=== PATIENT | female | born 1970 | race Caucasian/White ===

== ENCOUNTER → 2016-07-07 | Outpatient (CLI) | payer BC ==
[2016-07-07 17:15] LABS: THYROID STIMULATING HORMONE 3.26 uIu/ml (0.300-4.500)
== END | disposition home or self-care (01) ==
LOC: C.LABBFT 16:20
PROVIDERS: ATTEND Internal Medicine
DX: E03.9 Hypothyroidism, unspecified (principal)

== ENCOUNTER → 2016-12-13 | Outpatient (CLI) | payer BC ==
[~2016-12-13] MED LIST: FLUO40CA8 PO; LEVO175T3 PO; NIFE10CA20 PO; PRENTAB26 PO
== END | disposition home or self-care (01) ==
LOC: C.LAB 10:25
PROVIDERS: ATTEND Obstetrics & Gynecology
DX: O20.0 Threatened abortion (principal)

== ENCOUNTER → 2016-12-14 | Outpatient (CLI) | payer BC ==
[2016-12-16 20:51] LABS: CHLAMYDIA TRACH RNA*** NOT DETECTED (NOT DETECTED); GC (NEIS GONORRHOEAE)RNA** NOT DETECTED (NOT DETECTED)
== END | disposition home or self-care (01) ==
LOC: C.LABSPEC 15:40
PROVIDERS: ATTEND Obstetrics & Gynecology
DX: O09.521 Supervision of elderly multigravida, first trimester (principal)

== ENCOUNTER → 2016-12-15 | Outpatient (CLI) | payer BC | END | disposition home or self-care (01) | LOC: C.LAB 13:24 | PROVIDERS: ATTEND Obstetrics & Gynecology | DX: O20.0 Threatened abortion (principal) ==

== ENCOUNTER → 2016-12-26 | Outpatient (CLI) | payer BC | END | disposition home or self-care (01) | LOC: C.LAB 14:52 | PROVIDERS: ATTEND Obstetrics & Gynecology | DX: O20.0 Threatened abortion (principal); Z3A.00 Weeks of gestation of pregnancy not specified ==

== ENCOUNTER → 2017-01-09 | Outpatient (CLI) | payer BC ==
[2017-01-09 17:59] LABS: THYROID STIMULATING HORMONE 6.04 uIu/ml (0.300-4.500)
== END | disposition home or self-care (01) ==
LOC: C.LABBFT 17:48
PROVIDERS: ATTEND Internal Medicine
DX: N92.6 Irregular menstruation, unspecified (principal); E03.9 Hypothyroidism, unspecified

== ENCOUNTER → 2017-02-17 | Outpatient (CLI) | payer BC ==
[2017-02-17 12:42] LABS: BASO % 0.2 %; BASO ABS # 0.02 K/uL (0-0.2); COMPLETE YES; EOS % 0.7 %; HEMATOCRIT 36.8 % (37-47); IG% 0.2 %; LYMPH ABS # 1.45 K/uL (1.2-3.4); MEAN CELL VOLUME 92.5 fL (80-100); MEAN CORPUSCULAR HEMOGLOBIN 31.4 pg (25-34); MEAN PLATELET VOLUME 9.2 fL (7.4-10.4); MONO % 4.9 %; PLATELET COUNT 323 K/uL (130-400); RED BLOOD COUNT 3.98 M/uL (4.2-5.4); WHITE BLOOD COUNT 9.67 K/uL (4.8-10.8)
== END | disposition home or self-care (01) ==
LOC: C.LAB 10:46
PROVIDERS: ATTEND Obstetrics & Gynecology
DX: Z34.82 Encounter for supervision of other normal pregnancy, second trimester (principal)

== ENCOUNTER → 2017-03-10 | Outpatient (CLI) | payer BC ==
[2017-03-10 09:44] LABS: GTGD 50 Grams
== END | disposition home or self-care (01) ==
LOC: C.LAB 06:41
PROVIDERS: ATTEND Obstetrics & Gynecology
DX: O09.512 Supervision of elderly primigravida, second trimester (principal); Z3A.00 Weeks of gestation of pregnancy not specified

== ENCOUNTER 2017-05-23 14:26 | Outpatient (CLI) | payer BC ==
[~2017-05-23] VITALS: Ht 167.6 cm; Wt 88.0 kg
[2017-05-23] MEDS ORDERED: PRENTAB26 PO (15:33)
[2017-05-23] MEDS ORDERED: NIFE10CA20 PO (15:33)
[2017-05-23] MEDS ORDERED: FLUO40CA8 PO (15:33)
[2017-05-23] MEDS ORDERED: LEVO175T3 PO (15:33)
--- NOTE | 2017-05-23 17:59 | DIAGNOSTIC IMAGING REPORT ---
LIMITED (US) CLINICAL HISTORY: BLEEDING vaginal bleeding TECHNIQUE: Ultrasound COMPARISON STUDY: None FINDINGS: Single, viable intrauterine of approximately 27 weeks 2 days gestational age. Presentation is cephalic. Placenta is complete previa. Completely covers the internal cervical os The following parameters were obtained 1. VERONICA 6.7 cm equals 27 weeks 0 days. 2. HC 24.1 cm equals 26 weeks 1 day. 3. ACC 21.6 equals 26 weeks 1 day. 4. FL 5.1 cm equals 27 weeks 1 day. IMPRESSION: 1. Complete placenta previa 2. No evidence for abruption placenta. 3. Maternal cervix 3.2 cm in greatest length. 4. Single, viable intrauterine of approximately 27 weeks 2 days gestational age. The above report was generated using voice recognition software. It may contain grammatical, syntax or spelling errors. Electronically signed by: Mark Soliman M.D. 05/23/2017 5:58 PM Dictated Date/Time: 05/23/2017 5:54 PM
[2017-05-23 18:39] VITALS: Ht 167.6 cm; Wt 88.0 kg
== END 2017-05-23 17:48 | disposition home or self-care (01) ==
LOC: C.OPB 14:26 → C.LD 14:26 → C.OPB 17:48
PROVIDERS: ATTEND Obstetrics & Gynecology
DX: O44.02 Complete placenta previa NOS or without hemorrhage, second trimester (principal); O09.522 Supervision of elderly multigravida, second trimester; Z3A.27 27 weeks gestation of pregnancy

== ENCOUNTER → 2017-06-02 | Outpatient (CLI) | payer BC | END | disposition home or self-care (01) | LOC: C.LABBFT 08:28 | PROVIDERS: ATTEND Physician Assistant Medical | DX: E03.9 Hypothyroidism, unspecified (principal) ==

== ENCOUNTER 2017-06-16 18:29 | Emergency (ER) | payer BC ==
[~2017-06-16] VITALS: Ht 167.6 cm; Wt 91.8 kg
[2017-06-16 18:35] VITALS: TEMP 36.8; Ht 167.6 cm; Wt 91.8 kg
[2017-06-16] MEDS ORDERED: SODIUM CHLORIDE 0.9% 1000ML 1,000 ML IV STA ×2 (18:42)
[2017-06-16 19:01] LABS: BASO % 0.2 %; BASO ABS # 0.02 K/uL (0-0.2); COMPLETE YES; EOS % 1.1 %; HEMATOCRIT 34.6 % (37-47); IG% 1.6 %; LYMPH % 15.7 %; LYMPH ABS # 1.92 K/uL (1.2-3.4); MEAN CORPUSCULAR HEMOGLOBIN 32.1 pg (25-34); MEAN CORPUSCULAR HGB CONC 34.1 g/dl (32-36); MEAN PLATELET VOLUME 9.4 fL (7.4-10.4); MONO % 6.2 %; NEUT % 75.2 %; PLATELET COUNT 286 K/uL (130-400); RED BLOOD COUNT 3.68 M/uL (4.2-5.4); WHITE BLOOD COUNT 12.22 K/uL (4.8-10.8)
[2017-06-16 19:11] LABS: PARTIAL THROMBOPLASTIN RATIO 0.9; PROTHROMBIN TIME (PATIENT) 10.4 SECONDS (9.0-12.0)
[2017-06-16] MEDS ORDERED: NIFEdipine 10 MG CAP PO STA (19:11)
[2017-06-16 19:25] LABS: ALT/SGPT 15 U/L (12-78); BLOOD UREA NITROGEN 17 mg/dl (7-18); BUN/CREATININE RATIO 19.9 (10-20); CALCIUM 8.8 mg/dl (8.5-10.1); CARBON DIOXIDE 21 mmol/L (21-32); CHLORIDE 104 mmol/L (98-107); CREATININE 0.84 mg/dl (0.60-1.20); GLUCOSE 107 mg/dl (70-99); POTASSIUM 3.8 mmol/L (3.5-5.1); SODIUM 136 mmol/L (136-145)
[2017-06-16 19:28] LABS: ALKALINE PHOSPHATASE 105 U/L (45-117); AST/SGOT 14 U/L (15-37)
[2017-06-16] MEDS ORDERED: ACETAMINOPHEN 325 MG TAB ONE (19:42)
[2017-06-16 20:01] VITALS: BP 140/90; PULSE 82; O2SAT 97
--- NOTE | 2017-06-16 20:03 | DIAGNOSTIC IMAGING REPORT ---
LIMITED (US) CLINICAL HISTORY: 46 years-old Female presenting with bleeding vag w/ placenta previa 31 wks preg . TECHNIQUE: Real-time grayscale and M-mode Doppler ultrasound imaging of the pelvis was performed using a transabdominal probe. COMPARISON: 05/23/2017. FINDINGS: Uterus: Single live intrauterine . Biparietal diameter 8.1 cm (32 weeks 3 days); head circumference 27 cm (29 weeks 3 days); abdominal circumference 26 cm (30 weeks 1 day); femur length 5.6 cm (29 weeks 6 days). Composite gestational age 29 weeks 4 days. The gestational age by first ultrasound was 30 weeks 5 days. heart rate 139 beats per minute. Cephalic presentation. Normal amniotic fluid volume with the largest pocket measuring 17 cm. Placenta previa. No perigestational fluid to suggest hemorrhage. Cervix contains debris extending into the upper vagina though is nondilated and measures 4.2 cm in length Right adnexa: Right ovary not assessed. Left adnexa: Left ovary not assessed. Other: No free fluid. IMPRESSION: Placenta previa with debris in the overall nondilated cervix extending into the vagina. This is concerning for hemorrhage. Correlate clinically. Otherwise normal-appearing third trimester fetus. Further details as above. Electronically signed by: Patel Camarena M.D. 06/16/2017 8:01 PM Dictated Date/Time: 06/16/2017 7:57 PM
--- NOTE | 2017-06-16 20:20 | HISTORY & PHYSICAL EXAMINATION ---
DATE OF ADMISSION: 06/16/2017 CHIEF COMPLAINT: Vaginal bleeding with clotting, intrauterine 30 weeks 5 days. History of complete placenta previa. HISTORY OF PRESENT ILLNESS: The patient is a 46-year-old 4, para 3. She had a girl that from a brain tumor at age 9. Her last menstrual period for the was sometime in October, she was dated with an early ultrasound. Her due date is 08/20/2007. She is presently at 30 weeks 5 days and on Monday and Monday of this week she received Celestone 12 mg IM. She was diagnosed with placenta previa, was suspected at 16 weeks gestation and confirmed at 22 weeks' gestation. She has had a course of Celestone at about 26 weeks and then a second course earlier this week. She has had some vaginal spotting and light bleeding. The day of admission she had some heavy vaginal bleeding with clotting and some cramping. She was immediately taken to the Emergency Room. The bleeding stopped on its own. We did a bedside ultrasound, the cervix was still long; however, there were some clots in the vagina and there were some clots in the endocervical canal. PAST MEDICAL HISTORY: She has 3 girls in good health. ALLERGIES: SHE IS ALLERGIC TO CODEINE. PAST SURGICAL HISTORY: She has had no previous surgery. MEDICAL HISTORY: She has had hypothyroidism which is being treated and she has suspected Von Willebrand's disease. SOCIAL HISTORY: No smoking. No excessive alcohol intake. Works at the [employer] [address]. FAMILY HISTORY: Mom is 67 in good health. Father 69 in good health. She has 1 sister in good health. REVIEW OF SYSTEMS: She has history of migraine headaches. No symptoms of frequent or severe bladder infections, ear infections, nosebleed or sore throats. PHYSICAL EXAMINATION: GENERAL: Well-developed, well-nourished 46-year-old white female, alert, oriented x3 and cooperative in no acute distress, appears stated age. EYES: Conjunctivae are pink, sclerae white, no evidence of jaundice. EARS: Had normal light reflex bilaterally. NOSE: Had normal mucosa. Septum is midline. There were no polyps. THROAT: No erythema or evidence of infection. Teeth are in good state of repair. HEART: Had regular rhythm. LUNGS: Clear to auscultation and percussion. ABDOMEN: Soft and nontender, consistent with 30-week . There was no CVA tenderness. EXTREMITIES: No calf tenderness. PELVIC: Deferred due to history of complete placenta previa. IMPRESSIONS OF THIS CASE: Intrauterine at 30 weeks 5 days, complete placenta previa, hypothyroidism, Von Willebrand's disease and vaginal bleeding.
--- NOTE | 2017-06-16 22:36 | EMERGENCY ROOM VISIT NOTE ---
History Report prepared by Manuela: Austyn Perera Under the Supervision of: Dr. Niranjan Booker D.O. First contact with patient: 18:34 Chief Complaint: VAGINAL BLEEDING Stated Complaint: History of Present Illness The patient is a 46 year old female who presents to the Emergency Room with complaints of intermittent vaginal bleeding starting three days ago. She reports that she is currently 30 weeks and 5 days . The patient states that this is her fifth and she has not had any complications except placental previa so far which is complete. She reports that she follows up with Dr. Lambert for her . She states that she started bleeding 40 minutes ago after standing up. She states that she bled about 2 cups worth and notes that the bleeding stopped on the way to the ED. She reports that she has also been experiencing intermittent contractions throughout the whole day. She also has a history of von Willebrand's disease. The patient denies chest pain, shortness of breath, nausea, vomiting, diarrhea, abdominal cramping, recent trauma or injury. Per the patient's report, her is 7 and her para is 4 with two spontaneous abortions. She was diagnosed with a complete placenta previa on Source of History: patient Onset: three days ago Position: other (vaginal) Quality: other (bleeding) Timing: intermittent Associated Symptoms: No chest pain, No SOB, No nausea, No vomiting, No abdominal pain, No diarrhea Review of Systems See HPI for pertinent positives & negatives. A total of 10 systems reviewed and were otherwise negative. Past Medical & Surgical Medical Problems: (1) 30 weeks gestation of (2) Complete placenta previa with hemorrhage, third trimester (3) Placenta previa (4) Rupture, membranes, premature Family History Patient reports no known family medical history. Social History Smoking Status: Never Smoker Smokeless Tobacco Use: No Alcohol Use: none Drug Use: none Marital Status: Housing Status: lives with family Occupation Status: employed Current/Historical Medications Scheduled Fluoxetine (Prozac), 40 MG PO DAILY Levothyroxine Sodium (Levothyroxine Sodium), 175 MG PO DAILY Multivit/Min/Iron/Fol Ac/Pren ( Vitamin), 1 TAB PO DAILY Scheduled PRN Nifedipine (Procardia), 10 MG PO DAILY PRN for . Allergies Coded Allergies: Codeine (Verified Allergy, Intermediate, HIVES, 06/16/17) Physical Exam Vital Signs Date Time Temp Pulse Resp B/P (MAP) Pulse Ox O2 Delivery O2 Flow Rate FiO2 06/16/17 20:01 82 20 140/90 97 Room Air 06/16/17 18:46 Room Air 06/16/17 18:44 96 17 142/94 98 Room Air 06/16/17 18:35 36.8 97 18 162/105 98 Room Air Physical Exam GENERAL: Laying in bed, disheveled, anxious, dried blood on legs in bed. EYE EXAM: normal conjunctiva. OROPHARYNX: no exudate, no erythema, lips, buccal mucosa, and tongue normal and mucous membranes are moist LUNGS: Clear to auscultation. Normal chest wall mechanics HEART: Tachycardic, no murmurs, S1 normal and S2 normal ABDOMEN: Gravid uterus several inches above umbilicus/subxiphoid. abdomen soft, non-tender, normo-active bowel sounds, no masses, no rebound or guarding. BEDSIDE ULTRASOUND: heart rate 154 moving all extremities. BACK: Back is symmetrical on inspection and there is no deformity, no midline tenderness, no CVA tenderness. SKIN: no rashes and no bruising UPPER EXTREMITIES: upper extremities are grossly normal. LOWER EXTREMITIES: No pitting edema. : No active bleeding on external exam. Dried blood/clot at the labia minora. NEURO EXAM: Normal sensorium, cranial nerves II-XII intact, normal speech, no weakness of arms, no weakness of legs. Gross sensation intact. Medical Decision & Procedures ER Provider Diagnostic Interpretation: Radiology results as stated below per my review and the radiologist's interpretation: LIMITED (US) CLINICAL HISTORY: 46 years-old Female presenting with bleeding vag w/ placenta previa 31 wks preg . TECHNIQUE: Real-time grayscale and M-mode Doppler ultrasound imaging of the pelvis was performed using a transabdominal probe. COMPARISON: 05/23/2017. FINDINGS: Uterus: Single live intrauterine . Biparietal diameter 8.1 cm (32 weeks 3 days); head circumference 27 cm (29 weeks 3 days); abdominal circumference 26 cm (30 weeks 1 day); femur length 5.6 cm (29 weeks 6 days). Composite gestational age 29 weeks 4 days. The gestational age by first ultrasound was 30 weeks 5 days. heart rate 139 beats per minute. Cephalic presentation. Normal amniotic fluid volume with the largest pocket measuring 17 cm. Placenta previa. No perigestational fluid to suggest hemorrhage. Cervix contains debris extending into the upper vagina though is nondilated and measures 4.2 cm in length Right adnexa: Right ovary not assessed. Left adnexa: Left ovary not assessed. Other: No free fluid. IMPRESSION: Placenta previa with debris in the overall nondilated cervix extending into the vagina. This is concerning for hemorrhage. Correlate clinically. Otherwise normal-appearing third trimester fetus. Further details as above. Electronically signed by: Patel Camarena M.D. 06/16/2017 8:01 PM Dictated Date/Time: 06/16/2017 7:57 PM Laboratory Results 06/16/17 18:34 Red Blood Count 3.68, Mean Corpuscular Volume 94.0, Mean Corpuscular Hemoglobin 32.1, Mean Corpuscular Hemoglobin Concent 34.1, Mean Platelet Volume 9.4, Neutrophils (%) (Auto) 75.2, Lymphocytes (%) (Auto) 15.7, Monocytes (%) (Auto) 6.2, Eosinophils (%) (Auto) 1.1, Basophils (%) (Auto) 0.2, Neutrophils # (Auto) 9.19, Lymphocytes # (Auto) 1.92, Monocytes # (Auto) 0.76, Eosinophils # (Auto) 0.13, Basophils # (Auto) 0.02 06/16/17 18:34 Test 06/16/17 18:34 White Blood Count 12.22 K/uL (4.8-10.8) Red Blood Count 3.68 M/uL (4.2-5.4) Hemoglobin 11.8 g/dL (12.0-16.0) Hematocrit 34.6 % (37-47) Mean Corpuscular Volume 94.0 fL (80-100) Mean Corpuscular Hemoglobin 32.1 pg (25-34) Mean Corpuscular Hemoglobin Concent 34.1 g/dl (32-36) Platelet Count 286 K/uL (130-400) Mean Platelet Volume 9.4 fL (7.4-10.4) Neutrophils (%) (Auto) 75.2 % Lymphocytes (%) (Auto) 15.7 % Monocytes (%) (Auto) 6.2 % Eosinophils (%) (Auto) 1.1 % Basophils (%) (Auto) 0.2 % Neutrophils # (Auto) 9.19 K/uL (1.4-6.5) Lymphocytes # (Auto) 1.92 K/uL (1.2-3.4) Monocytes # (Auto) 0.76 K/uL (0.11-0.59) Eosinophils # (Auto) 0.13 K/uL (0-0.5) Basophils # (Auto) 0.02 K/uL (0-0.2) RDW Standard Deviation 45.9 fL (36.4-46.3) RDW Coefficient of Variation 13.4 % (11.5-14.5) Immature Granulocyte % (Auto) 1.6 % Immature Granulocyte # (Auto) 0.20 K/uL (0.00-0.02) Prothrombin Time 10.4 SECONDS (9.0-12.0) Prothromb Time International Ratio 1.0 (0.9-1.1) Activated Partial Thromboplast Time 24.0 SECONDS (21.0-31.0) Partial Thromboplastin Ratio 0.9 Anion Gap 11.0 mmol/L (3-11) Est Creatinine Clear Calc Drug Dose 97.5 ml/min Estimated GFR () 98.0 Estimated GFR (Non- 84.5 BUN/Creatinine Ratio 19.9 (10-20) Calcium Level 8.8 mg/dl (8.5-10.1) Total Bilirubin 0.2 mg/dl (0.2-1) Direct Bilirubin < 0.1 mg/dl (0-0.2) Aspartate Amino Transf (AST/SGOT) 14 U/L (15-37) Alanine Aminotransferase (ALT/SGPT) 15 U/L (12-78) Alkaline Phosphatase 105 U/L (45-117) Total Protein 7.3 gm/dl (6.4-8.2) Albumin 2.9 gm/dl (3.4-5.0) Lipase 269 U/L (73-393) Laboratory results per my review. Medications Administered Medications (Trade) Dose Ordered Sig/Ceci Route Start Time Stop Time Status Last Admin Dose Admin Sodium Chloride 1,000 ml @ 999 mls/hr Q1H1M STAT IV 06/16/17 18:42 06/16/17 19:42 DC 06/16/17 18:45 999 MLS/HR Sodium Chloride 1,000 ml @ 999 mls/hr Q1H1M STAT IV 06/16/17 18:42 06/16/17 19:42 DC 06/16/17 18:45 999 MLS/HR Nifedipine (Procardia Cap) 10 mg NOW STAT PO 06/16/17 19:11 06/16/17 19:13 DC 06/16/17 19:43 10 MG Acetaminophen (Tylenol Tab) 650 mg STK-MED ONCE .ROUTE 06/16/17 19:42 06/16/17 19:43 DC 06/16/17 19:42 650 MG ECG Indication: other (bleeding) Rate (beats per minute): 91 Rhythm: normal sinus Findings: no acute ischemic change, no ectopy, other (normal axis) ED Course ED COURSE: Vital signs were reviewed and showed tachycardia. The patients medical record was reviewed The above diagnostic studies were performed and reviewed. ED treatments and interventions as stated above. 1835: The patient was evaluated in room B06. A complete history and physical examination was performed. 1841: Ordered Sodium Chloride 1000 ml @ 999 mls/hr IV. 1904: The secretary bookkeeper attempted to page Dr. Lambert and tried calling his cell phone. I also attempted to call him at home twice. 1909: I discussed the patient's case with Dr. Lambert, PRODUCT HANDLER. He suggests giving the patient Procardia. He will come in to evaluate the patient. 1910: Ordered Procardia Cap 10 mg PO. 1941: Ordered Tylenol Tab 650 mg PO. 2023: The patient's water broke as she was being brought upstairs. Medical Decision Differential diagnoses includes but is not limited to appendicitis, diverticulitis, small bowel obstruction, malignancy, hernia, urinary tract infection, torsion, and ectopic (if female), perforation, trauma, infectious. Patient is at 31 weeks and 5 days that presents to ER with known complete placenta previa and having painless vaginal bleeding. Upon arrival she is no longer bleeding. Bedside ultrasound confirms IUP with heart rate in the 150s. Prior to entering the room I had the charge nurse call OB. After multiple phone calls were eventually received a phone call back. She remained stable. CBC shows a mild leukocytosis and hemoglobin 11. BMP all LFTs, bilirubin lipase is normal. She was O+ and consequently Rogaine was not given. While waiting for OB we have stat renal ultrasound performed at bedside. Cervix was nondilated and there is debris/blood in the vagina. With her intermittent contraction she was given Norvasc orally after discussion with OB. Just prior to being taken upstairs but appeared her nursing that her water broke. Patient did remain stable while in the ER without any active or recurrence of bleeding. Medication Reconcilliation Current Medication List: was personally reviewed by me Blood Pressure Screening Patient's blood pressure: Elevated blood pressure Blood pressure disposition: Elevated BP felt to be situational Consults Time Called: 1834 Consulting Physician: Dr. Lambert, PRODUCT HANDLER Returned Call: 1909 I discussed the patient's case with Dr. Lambert, PRODUCT HANDLER. He suggests giving the patient Procardia. He will come in to evaluate the patient. Impression Primary Impression: Placenta previa Additional Impression: premature rupture of membranes Scribe Attestation The scribe's documentation has been prepared under my direction and personally reviewed by me in its entirety. I confirm that the note above accurately reflects all work, treatment, procedures, and medical decision making performed by me. Departure Information Dispostion Being Evaluated By Hospitalist Referrals Emanuel Ardon M.D. (PCP) Patient Instructions My [facility] Problem Qualifiers Primary Impression: Placenta previa Trimester: third trimester Qualified Codes: O44.03 - Complete placenta previa nos or without hemorrhage, third trimester Additional Impression: premature rupture of membranes PROM onset of labor timing: unspecified duration between rupture of membranes and onset of labor Qualified Codes: O42.919 - premature rupture of membranes, unspecified as to length of time between rupture and onset of labor, unspecified trimester
== END 2017-06-16 20:05 | disposition admitted as inpatient to this hospital (09) ==
LOC: C.EDB 18:30
DX: O44.03 Complete placenta previa NOS or without hemorrhage, third trimester (principal); O42.919 Preterm premature rupture of membranes, unspecified as to length of time between rupture and onset of labor, unspecified trimester; Z3A.30 30 weeks gestation of pregnancy

== ENCOUNTER 2017-06-16 20:08 | Inpatient (IN) | payer BC ==
[~2017-06-16] VITALS: Ht 167.6 cm; Wt 88.9 kg
[2017-06-16] MEDS ORDERED: CITRIC ACID/SODIUM CITRATE 15 ML UDC PO ONE (20:15)
[2017-06-16] MEDS ORDERED: LACTATED RINGER'S 1000ML 1,000 ML IV SCH (20:15)
[2017-06-16] MEDS ORDERED: CEFOXITIN IV 2,000 MG in DEXTROSE 5% 50ML 50 ML IV SCH (20:30)
[2017-06-16] MEDS ORDERED: PROPOFOL IV EMULSION 10 MG/ML 20 ML VIAL IV ONE (20:35)
[2017-06-16] MEDS ORDERED: SUCCINYLCHOLINE CHLORIDE 20 MG/ML 10 ML VIAL IV ONE (20:35)
[2017-06-16] MEDS ORDERED: LIDOCAINE HCL 2% 2 ML VIAL (20MG/ML) ONE (20:35)
[2017-06-16] MEDS ORDERED: FENTANYL CITRATE INJ 50 MCG/1 ML 2 ML VIAL ONE (20:36)
[2017-06-16 20:39] VITALS: Ht 167.6 cm; Wt 88.9 kg
[2017-06-16 20:42] LABS: BASO % 0.1 %; BASO ABS # 0.01 K/uL (0-0.2); COMPLETE YES; EOS % 0.8 %; HEMATOCRIT 32.1 % (37-47); IG% 1.6 %; LYMPH % 16.7 %; MEAN CELL VOLUME 94.1 fL (80-100); MEAN CORPUSCULAR HEMOGLOBIN 32.3 pg (25-34); MEAN CORPUSCULAR HGB CONC 34.3 g/dl (32-36); MEAN PLATELET VOLUME 9.2 fL (7.4-10.4); MONO % 5.2 %; NEUT % 75.6 %; PLATELET COUNT 240 K/uL (130-400); RED BLOOD COUNT 3.41 M/uL (4.2-5.4); WHITE BLOOD COUNT 11.41 K/uL (4.8-10.8)
[2017-06-16] MEDS ORDERED: MIDAZOLAM HCL 1 MG/ML 2ML VIAL ONE (20:55)
[2017-06-16] MEDS ORDERED: HUMATE P IV ONE (21:00)
[2017-06-16] MEDS ORDERED: MISOPROSTOL 200 MCG TAB PR STA (21:05)
[2017-06-16] MEDS ORDERED: ONDANSETRON INJ 2 MG/ML 2 ML VIAL ONE (21:07)
[2017-06-16] MEDS ORDERED: OXYTOCIN INJ 10 UNITS/ML VIAL INJ ONE (21:27)
[2017-06-16] MEDS ORDERED: HYDROmorphone INJ 2 MG/ML SYR/VIAL ONE (21:34)
[2017-06-16] MEDS ORDERED: OXYTOCIN INJ 10 UNITS/ML VIAL ONE (21:37)
--- NOTE | 2017-06-16 22:32 | [facility] Post Operative Brief Note ---
Immediate Operative Summary Operative Date Jun 16, 2017. Pre-Operative Diagnosis Complete Placenta previa; ruptured membranes Post-Operative Diagnosis Complete Placenta previa; ruptured membranes:Intrauterine 30 weeks 5 days Procedure(s) Performed Section- in OR Surgeon Dr. Mcmillan Test Lead Surgeon(s) Dr. Yin Estimated Blood Loss 1000 ml Findings no amniotic fluid complete placenta previa Specimens Placenta handled by nursery staff Arnold Madden RN Complication(s) None Disposition Recovery Room / PACU
[2017-06-16] MEDS ORDERED: DIPHTHERIA/TETANUS/PERTUSSIS 0.5 ML SYR/VIAL IM. ONE (22:45)
[2017-06-16] MEDS ORDERED: LANOLIN OINT EXT PRN ×2 (22:45)
[2017-06-16] MEDS ORDERED: BENZOCAINE 20% AER SPR 82.5 GM CAN EXT PRN (22:45)
[2017-06-16] MEDS ORDERED: MEPERIDINE HCL 50 MG/ML CARP IV PRN ×2 (22:45)
[2017-06-16] MEDS ORDERED: HYDROCORTISONE ACETATE 25 MG SUPP PR PRN (22:45)
[2017-06-16] MEDS ORDERED: ONDANSETRON INJ 2 MG/ML 2 ML VIAL IV PRN ×2 (22:45→23:00)
[2017-06-16] MEDS ORDERED: DiphenhydrAMINE HCL 50 MG/ML VIAL IV PRN (22:45)
[2017-06-16] MEDS ORDERED: ZOLPIDEM TARTRATE 5 MG TAB PO PRN (22:45)
[2017-06-16] MEDS ORDERED: SENNA 8.6 MG TAB PO PRN (22:45)
[2017-06-16] MEDS ORDERED: MAGNESIUM HYDROXIDE SUSP 30 ML UDC PO PRN (22:45)
[2017-06-16] MEDS ORDERED: SUPERCREAM 0.870 % 15GM JAR EXT PRN (22:45)
--- NOTE | 2017-06-16 22:55 | Anesthesiology Progress Note ---
Anesthesia Post Op Note Date & Time Jun 16, 2017 at 22:54 Notes Mental Status: alert / awake / arousable, participated in evaluation Pt Amnestic to Procedure: Yes Nausea / Vomiting: adequately controlled Pain: adequately controlled Airway Patency, RR, SpO2: stable & adequate BP & HR: stable & adequate Hydration State: stable & adequate Anesthetic Complications: no major complications apparent
[2017-06-16] MEDS ORDERED: EpHEDrine SULFATE INJ 50 MG/ML AMP IV PRN (23:00)
[2017-06-16] MEDS ORDERED: ATROPINE SULFATE 0.1 MG/ML 5ML SYR IV PRN (23:00)
[2017-06-16] MEDS ORDERED: FENTANYL CITRATE INJ 50 MCG/1 ML 2 ML VIAL IV PRN (23:00)
[2017-06-16] MEDS: HYDROmorphone INJ 1 MG/ML SYR IV PRN ×2 (23:26→23:30)
[2017-06-16] MEDS: OXYTOCIN INJ 20 UNITS in D5W AND LACTATED RINGERS 1,000 ML IV SCH (23:39)
[2017-06-17] VITALS (7 sets, daily range): BP systolic 103–136; BP diastolic 65–90; PULSE 90–98; TEMP 36.8–37.7; O2SAT 96–100
[2017-06-17] MEDS: HYDROmorphone INJ 0.5 MG/0.5 ML SYR IV PRN ×2 (02:19→08:15)
--- NOTE | 2017-06-17 03:39 | OPERATIVE REPORT ---
DATE OF OPERATION: 06/16/2017 PROCEDURE: Primary low segment section for premature rupture of membranes and total placenta previa. PREOPERATIVE DIAGNOSIS: Vincent rupture of membranes, intrauterine at 30 weeks 5 days total placenta previa. POSTOPERATIVE DIAGNOSES: Same, delivered a live female infant essentially no amniotic fluid noted on opening the uterus. SURGEON: Alana Mcmillan MD. CLERK TO JUSTICE: Noam Yin MD. ESTIMATED BLOOD LOSS: 1000 mL. ANESTHESIA: General. OPERATIVE FINDINGS AND PROCEDURE: The patient was placed on the OR table, correctly identified by armband and conversation. Castillo catheter had been inserted into the bladder, connected to gravity drainage. Compression stockings were applied. Lower abdomen and umbilical area was painted with an alcohol based sterilizing solution. We waited 3 minutes for it to dry and then draped the abdomen in usual sterile fashion. After general anesthesia had been administered, a Pfannenstiel incision was made and carried down to the anterior fascia by sharp dissection. Fascia was then excised horizontally and then dissected off the recti muscles. The recti muscles were then in the midline exposing the peritoneum which was carefully raised and entered. The lower uterine segment was exposed, we made an incision above the vesicouterine fold, pushed the bladder bluntly out of the operative field, scored it with a knife and then entered the uterus relatively high, extended the incision with both fingers laterally, the placenta started to deliver as soon as we made the incision. I then grasped the placenta and the 's head in my left hand and with fundal pressure, we delivered the infant with the placenta on front of its head. Following this, infant was suctioned through the mouth and the nose. Cord was clamped and cut and the infant was attended to by the manager office who was present, scrubbed and ready at the time of delivery. I was unable to get cord gases because the placenta had come out, I removed the entire placenta brought the uterus out through the abdominal cavity, wiped the uterine cavity clean with a dry sponge, focused on the lower uterine segment and washed that clean, injected 10 units of Pitocin into the myometrium and grasped the edges of the myometrial defect with ring forceps and then used a heavy chromic gut suture with wide lateral bites and interlocking sutures from the right edge of the defect to the middle and then from the left edge of the defect to the middle. A couple a horizontal sutures had to be placed on the left side to control the bleeding and also some interrupted [id number] sutures of 0 Dexon were then placed to approximate the next layer over the myometrial layer and then several interrupted Dexon sutures were approximated to the edges that were bleeding. Once we achieved good hemostasis. We then approximated the bladder flap with a running 3-0 chromic. We checked the angles, washed the pelvis clean of all blood clots and debris checked for any hematoma formation, then reinserted the uterus, tubes, and ovary into the abdomen. Rechecked the incisional line and then did a careful anatomical approximation of the anterior abdominal wall. Peritoneum was closed with a mattress suture of chromic catgut. Recti muscles were approximated with interrupted [id number] suture of chromic catgut. The fascia was closed with continuous interlocking suture of Vicryl on each side, tied in the midline. SubQ was approximated with continuous plain. The skin edges were approximated with staple clips. I attest to the content of the Intraoperative Record and any orders documented therein. Any exception s are noted below.
[2017-06-17] MEDS: KETOROLAC TROMETHAMINE 30 MG/ML VIAL IV. PRN ×2 (05:01→19:33)
[2017-06-17 07:41] LABS: BASO % 0.1 %; BASO ABS # 0.01 K/uL (0-0.2); COMPLETE YES; EOS % 0.3 %; HEMATOCRIT 27.4 % (37-47); LYMPH % 7.3 %; LYMPH ABS # 1.27 K/uL (1.2-3.4); MEAN CELL VOLUME 94.5 fL (80-100); MEAN CORPUSCULAR HEMOGLOBIN 32.1 pg (25-34); MEAN CORPUSCULAR HGB CONC 33.9 g/dl (32-36); MEAN PLATELET VOLUME 9.2 fL (7.4-10.4); MONO % 5.8 %; NEUT % 85.5 %; PLATELET COUNT 252 K/uL (130-400); WHITE BLOOD COUNT 17.35 K/uL (4.8-10.8)
[2017-06-17] MEDS ORDERED: FLUOXETINE HCL 20 MG CAP PO SCH (08:00)
[2017-06-17] MEDS: FERROUS SULFATE 325 MG TAB PO SCH (08:00)
[2017-06-17] MEDS ORDERED: PRENATAL VITAMIN TAB PO SCH (08:00)
[2017-06-17] MEDS: DOCUSATE SODIUM 100 MG CAP PO SCH ×2 (08:00→19:33)
[2017-06-17] MEDS: LEVOTHYROXINE 175 MCG TAB PO SCH (08:00)
[2017-06-17] MEDS: OXYTOCIN INJ 20 UNITS in D5W AND LACTATED RINGERS 1,000 ML IV SCH (08:26)
[2017-06-17] MEDS: SIMETHICONE 80 MG CHEW PO SCH ×4 (09:00→19:33)
--- NOTE | 2017-06-17 10:54 | Progress Note ---
Subjective Jun 17, 2017. Subjective conversation w/ patient Ambulation: limited ambulation Voiding: no voiding problems Passing Gas: No Diet Tolerance: Clear Liquids Lochia: Small Feeding Type: Bottle Feeding Review of Systems Constitutional: + fever Objective Vital Signs Date Time Temp Pulse Resp B/P (MAP) Pulse Ox O2 Delivery O2 Flow Rate FiO2 06/17/17 08:00 36.9 92 20 112/65 (81) Room Air 06/17/17 08:00 Room Air 06/17/17 03:22 Room Air 06/17/17 03:17 37.1 90 18 125/84 (98) 100 Room Air Physical Exam General Appearance: WELL-APPEARING Respiratory/Chest: lungs clear Abdomen: non tender, + abnormal bowel sounds Fundus: Firm, Non-Tender Incision Description: Clean, Dry & Intact Extremities: no pedal edema, no calf tenderness Laboratory Results Last 24 Hours Test 06/16/17 20:25 06/17/17 06:59 White Blood Count 11.41 K/uL 17.35 K/uL Red Blood Count 3.41 M/uL 2.90 M/uL Hemoglobin 11.0 g/dL 9.3 g/dL Hematocrit 32.1 % 27.4 % Mean Corpuscular Volume 94.1 fL 94.5 fL Mean Corpuscular Hemoglobin 32.3 pg 32.1 pg Mean Corpuscular Hemoglobin Concent 34.3 g/dl 33.9 g/dl Platelet Count 240 K/uL 252 K/uL Mean Platelet Volume 9.2 fL 9.2 fL Neutrophils (%) (Auto) 75.6 % 85.5 % Lymphocytes (%) (Auto) 16.7 % 7.3 % Monocytes (%) (Auto) 5.2 % 5.8 % Eosinophils (%) (Auto) 0.8 % 0.3 % Basophils (%) (Auto) 0.1 % 0.1 % Neutrophils # (Auto) 8.64 K/uL 14.83 K/uL Lymphocytes # (Auto) 1.90 K/uL 1.27 K/uL Monocytes # (Auto) 0.59 K/uL 1.00 K/uL Eosinophils # (Auto) 0.09 K/uL 0.06 K/uL Basophils # (Auto) 0.01 K/uL 0.01 K/uL RDW Standard Deviation 46.0 fL 46.4 fL RDW Coefficient of Variation 13.5 % 13.5 % Immature Granulocyte % (Auto) 1.6 % 1.0 % Immature Granulocyte # (Auto) 0.18 K/uL 0.18 K/uL Assessment and Plan Post-Op Day#: 1 Continue Routine Care: hypoactive bowel sounds bandage removed
[2017-06-17] MEDS ORDERED: NURSING VERBAL MED ORDER ONE (12:15)
[2017-06-17] MEDS ORDERED: OXYCODONE/ACETAMINOPHEN 5-325 TAB PO PRN (12:30)
[2017-06-17] MEDS: IBUPROFEN 600 MG TAB PO PRN ×3 (12:36→21:13)
[2017-06-17] MEDS: FLUOXETINE HCL 20 MG CAP PO SCH (17:30)
[2017-06-17] MEDS: PRENATAL VITAMIN TAB PO SCH (17:30)
[2017-06-17] MEDS ORDERED: BISACODYL 5 MG TABEC PO ONE (22:00)
[2017-06-18] MEDS: KETOROLAC TROMETHAMINE 30 MG/ML VIAL IV. PRN (03:58)
[2017-06-18 07:40] VITALS: BP 128/82; PULSE 97; TEMP 37; O2SAT 98
[2017-06-18] MEDS: DOCUSATE SODIUM 100 MG CAP PO SCH ×2 (08:15→19:58)
[2017-06-18] MEDS: LEVOTHYROXINE 175 MCG TAB PO SCH (08:15)
[2017-06-18] MEDS: FERROUS SULFATE 325 MG TAB PO SCH (08:15)
[2017-06-18] MEDS: SIMETHICONE 80 MG CHEW PO SCH ×4 (08:15→19:58)
[2017-06-18] MEDS: IBUPROFEN 600 MG TAB PO PRN ×4 (08:18→21:55)
--- NOTE | 2017-06-18 11:03 | Progress Note ---
Subjective Jun 18, 2017. Subjective conversation w/ patient Ambulation: limited ambulation Voiding: no voiding problems Passing Gas: Yes Diet Tolerance: Regular Diet Lochia: Small Feeding Type: Breast Feeding Review of Systems Constitutional: + fever Objective Vital Signs Date Time Temp Pulse Resp B/P (MAP) Pulse Ox O2 Delivery O2 Flow Rate FiO2 06/17/17 23:40 36.8 98 16 136/90 (105) Room Air 06/17/17 23:25 Room Air 06/17/17 23:25 36.8 98 18 136/90 (105) Room Air 06/17/17 20:02 Room Air 06/17/17 20:02 37.2 94 16 121/74 (90) 97 Room Air 06/17/17 16:15 Room Air 06/17/17 16:15 37.0 96 16 103/69 (80) 96 Room Air 06/17/17 11:59 37.7 96 20 107/66 (80) Room Air Physical Exam General Appearance: WELL-APPEARING Respiratory/Chest: lungs clear Abdomen: normal bowel sounds, non tender Fundus: Firm, Non-Tender Incision Description: Clean, Dry & Intact Extremities: no pedal edema, no calf tenderness Assessment and Plan Post-Op Day#: 2
[2017-06-18 11:23] LABS: HEMATOCRIT 25.7 % (37-47)
[2017-06-18 15:30] VITALS: BP 118/75; PULSE 105; TEMP 37.1; O2SAT 95
[2017-06-18] MEDS: PRENATAL VITAMIN TAB PO SCH (17:32)
[2017-06-18] MEDS: FLUOXETINE HCL 20 MG CAP PO SCH (17:33)
[2017-06-18 19:25] VITALS: BP 113/74; PULSE 100; TEMP 37; O2SAT 96
[2017-06-18] MEDS ORDERED: DIPHTHERIA/TETANUS/PERTUSSIS 0.5 ML SYR/VIAL IM. ONE (21:30)
[2017-06-18] MEDS ORDERED: BISACODYL 10 MG SUPP PR PRN (22:45)
[2017-06-18 23:15] VITALS: BP 114/72; PULSE 91; TEMP 37; O2SAT 95
[2017-06-19] MEDS: IBUPROFEN 600 MG TAB PO PRN ×2 (03:01→07:49)
[2017-06-19] MEDS: LEVOTHYROXINE 175 MCG TAB PO SCH (07:48)
[2017-06-19] MEDS: SIMETHICONE 80 MG CHEW PO SCH (07:49)
[2017-06-19] MEDS: DOCUSATE SODIUM 100 MG CAP PO SCH (07:50)
[2017-06-19] MEDS: FERROUS SULFATE 325 MG TAB PO SCH (07:50)
[2017-06-19 07:56] VITALS: BP 131/80; PULSE 91; TEMP 36.9
--- NOTE | 2017-06-19 09:07 | Progress Note ---
Subjective Jun 19, 2017. Subjective conversation w/ patient Ambulation: ambulating normally Voiding: no voiding problems Passing Gas: Yes Diet Tolerance: Regular Diet Lochia: Small Feeding Type: Breast Feeding Review of Systems Constitutional: + fever Objective Vital Signs Date Time Temp Pulse Resp B/P (MAP) Pulse Ox O2 Delivery O2 Flow Rate FiO2 06/19/17 07:56 36.9 91 16 131/80 (97) Room Air 06/18/17 23:15 37.0 91 20 114/72 (86) 95 Room Air 06/18/17 23:15 95 Room Air 06/18/17 19:25 37.0 100 22 113/74 (87) 96 Room Air 06/18/17 15:30 37.1 105 18 118/75 (89) 95 Room Air 06/18/17 15:30 95 Room Air Physical Exam General Appearance: WELL-APPEARING Respiratory/Chest: lungs clear Abdomen: normal bowel sounds, non tender Fundus: Firm, Non-Tender Incision Description: Clean, Dry & Intact Extremities: no pedal edema, no calf tenderness Laboratory Results Last 24 Hours Test 06/18/17 11:12 06/19/17 09:04 Hemoglobin 8.5 g/dL Hematocrit 25.7 % Assessment and Plan Post-Op Day#: 3
--- NOTE | 2017-06-19 09:10 | Discharge Instructions ---
Discharge Instructions Date of Service Jun 19, 2017. Admission Reason for Admission: Complete Previa With Bleeding Discharge Discharge Diagnosis / Problem: anemia plcenta previa bleeding ruptured membranes premature delivery Discharge Goals Goal(s): Routine recovery after Activity Recommendations Activity Limitations: as noted below ACTIVITY RECOMMENDATIONS: * Gradual return to full activity over the next 2-3 weeks. * No lifting - nothing heavier than baby over the next 2-3 weeks. * Do not engage in vigorous exercise, sexual activity or sports for 6 weeks. * Do not drive or operate any motorized equipment for 14 days. * You may shower/bathe daily. DIET: Resume Previous Diet If Breast-feeding: * Increase caloric intake by 500 calories, eat 3 well balanced meals, 2 high protein snacks a day and drink 6-8 8oz. glasses of fluid per day. BREAST CARE: If you are not breast feeding: * Wear a supportive bra 24 hours a day for one to two weeks. * Avoid stimulating your breasts and nipples as much as possible during the first few weeks after delivery. * When taking a shower, have the warm water hit your back, not breasts. * When your breasts feel full, apply ice packs. Usually three to four times a day helps ease the discomfort. * Take a mild pain medication (Tylenol / Motrin) when you are uncomfortable. If breast feeding: * Use breast milk to lubricate nipples. Lansinoh cream may be used for sore nipples. You do not need to remove cream prior to breast feeding. If using a different brand of cream, check the label for directions regarding removal of cream prior to nursing. * Wear a supportive bra. * If having problems with breasts or breast feeding, call a tour consultant or your health care provider. VITAMINS: * One tablet daily. Continue taking while or until you have your check up in 6 weeks. SPECIAL CARE INSTRUCTIONS: * Vaginal rest (no tampons, douching, intercourse) until after doctor's visit. * control as discussed with doctor. * Verbalizes understanding of car seat law as reviewed with patient by nursing. * Car Seat hand-out given and reviewed with patient by nursing. * Shaken baby information reviewed with patient by nursing. Call you doctor if: * Heavy bleeding (saturating a pad an hour) or passing clots the size of your fist. Bleeding has a foul smelling odor. * A fever greater than 100.4 degrees F (38 degrees C) on two occasions four hours apart and/or chills. * Unusual pain in the pelvic or vaginal areas. Pain should improve each day . * Call the doctor for any increased redness, drainage or swelling around the incision and any pain unrelieved by prescribed pain medication. * Signs and symptoms of phlebitis(possible blood clots forming in the veins): leg pain, warm, red or swollen area on leg. * "Baby Blues" lasting longer than two weeks. If you have any questions or concerns, call your health care practitioner at [phone]. FOLLOW-UP VISIT: Follow-up visit for examination in 6 weeks. Incision check (staple removal) in 1 week. Please call office at [phone] if not already scheduled. . Current Hospital Diet ACTIVITY RECOMMENDATIONS: * Gradual return to full activity over the next 2-3 weeks. * No lifting - nothing heavier than baby over the next 2-3 weeks. * Do not engage in vigorous exercise, sexual activity or sports for 6 weeks. * Do not drive or operate any motorized equipment for 14 days. * You may shower/bathe daily. DIET: Resume Previous Diet If Breast-feeding: * Increase caloric intake by 500 calories, eat 3 well balanced meals, 2 high protein snacks a day and drink 6-8 8oz. glasses of fluid per day. BREAST CARE: If you are not breast feeding: * Wear a supportive bra 24 hours a day for one to two weeks. * Avoid stimulating your breasts and nipples as much as possible during the first few weeks after delivery. * When taking a shower, have the warm water hit your back, not breasts. * When your breasts feel full, apply ice packs. Usually three to four times a day helps ease the discomfort. * Take a mild pain medication (Tylenol / Motrin) when you are uncomfortable. If breast feeding: * Use breast milk to lubricate nipples. Lansinoh cream may be used for sore nipples. You do not need to remove cream prior to breast feeding. If using a different brand of cream, check the label for directions regarding removal of cream prior to nursing. * Wear a supportive bra. * If having problems with breasts or breast feeding, call a tour consultant or your health care provider. VITAMINS: * One tablet daily. Continue taking while or until you have your check up in 6 weeks. SPECIAL CARE INSTRUCTIONS: * Vaginal rest (no tampons, douching, intercourse) until after doctor's visit. * control as discussed with doctor. * Verbalizes understanding of car seat law as reviewed with patient by nursing. * Car Seat hand-out given and reviewed with patient by nursing. * Shaken baby information reviewed with patient by nursing. Call you doctor if: * Heavy bleeding (saturating a pad an hour) or passing clots the size of your fist. Bleeding has a foul smelling odor. * A fever greater than 100.4 degrees F (38 degrees C) on two occasions four hours apart and/or chills. * Unusual pain in the pelvic or vaginal areas. Pain should improve each day . * Call the doctor for any increased redness, drainage or swelling around the incision and any pain unrelieved by prescribed pain medication. * Signs and symptoms of phlebitis(possible blood clots forming in the veins): leg pain, warm, red or swollen area on leg. * "Baby Blues" lasting longer than two weeks. If you have any questions or concerns, call your health care practitioner at [phone]. FOLLOW-UP VISIT: Follow-up visit for examination in 6 weeks. Incision check (staple removal) in 1 week. Please call office at [phone] if not already scheduled. Patient's current hospital diet: Regular OB Diet Discharge Diet Recommended Diet: Regular Diet Procedures Procedures Performed: Section- in OR Pending Studies Studies pending at discharge: no Medical Emergencies . Who to Call and When: Medical Emergencies: If at any time you feel your situation is an emergency, please call 911 immediately. . Non-Emergent Contact Non-Emergency issues call your: Information Broker Call Non-Emergent contact if: temperature is above 100.5 . . "Provider Documentation" section prepared by Juan Diego Mcmillan. . VTE Core Measure Inpt VTE Proph given/why not?: Treatment not indicated
[2017-06-19 09:31] LABS: HEMATOCRIT 23.5 % (37-47)
--- NOTE | 2017-06-19 09:50 | DISCHARGE SUMMARY ---
Leonard was admitted with a diagnosis of placenta previa. This diagnosis had been made early in her . She had been on restrictions for weeks and up until the last week or so she did relatively well. It should be noted that the placenta was a complete placenta previa. She had been managed with pelvic rest and limited activity. She took occasional doses of Procardia when she felt crampy. It also should be noted that the Monday and Monday prior to delivery she had received Celestone to help mature the baby's lungs in case of early delivery. For several days prior to admission she had had some slight bloody discharge and this had been managed by bed rest. The day of admission, she passed a large clot, felt crampy, came into the Emergency Room. We were evaluating her to transfer to a tertiary care center. When she got up to go to the bathroom she had maura rupture of membranes with a gush of fluid. We then decided to deliver her here at the hospital. [facility] pediatrics came down and were actually present at the time of the delivery. We put in two IVs, took her to the OR, had 4 units of blood in the room. Under general anesthesia we did a low segment section. On entering the uterus the placenta came out and I actually delivered the infant with the placenta on top of his head. He was attended to immediately by [facility] design printing machine setter who was scrubbed and present at time of delivery. His cry and breathing efforts were good. Following this, we removed the placenta. We wiped the uterine cavity clean, wiped the lower uterine segment clean and there was more bleeding than usual because of the placement of the placenta. We did several layer lower uterine segment closure, first with chromic catgut, then with Vicryl and then with a number of interrupted [id number] sutures of Vicryl to achieve hemostasis. We also gave her IV Pitocin, IM Pitocin into the uterine muscle itself and also we gave her a rectal Cytotec. With these efforts we were able to achieve hemostasis and patient did well. Her preoperative hemoglobin was 11.0. Immediately postop on 06/17/2017 it was 9.3, on 06/18/2017 it was 8.5. Bowel sounds returned promptly. The patient remained afebrile. She did receive prophylactic antibiotics prior to surgery and the infant was transferred to [facility] and he was doing well. On the third postoperative day she was ambulating well, eating well. We kodak a hemoglobin to check her blood count and gave her instructions to continue taking vitamins along with iron and vitamin C and to return in a week for removal of rakesh. She was also told to call the office if she had a temperature over 100 or any heavy bleeding or any problems.
[2017-06-19 11:00] VITALS: BP_DIAS 80; PULSE 91; TEMP 36.9
== END 2017-06-19 11:00 | disposition home or self-care (01) | DRG 774 ==
LOC: C.LD 20:08 → C.OBG 06-17 14:34
PROVIDERS: ADMIT Obstetrics & Gynecology; ATTEND Obstetrics & Gynecology
PROC: 10E0XZZ Delivery of Products of Conception, External Approach (ICD-10-PCS; principal; 2017-06-16 20:16)
DX: O44.03 Complete placenta previa NOS or without hemorrhage, third trimester (principal); O42.913 Preterm premature rupture of membranes, unspecified as to length of time between rupture and onset of labor, third trimester; Z3A.30 30 weeks gestation of pregnancy; Z37.0 Single live birth

== ENCOUNTER → 2017-08-10 | Outpatient (CLI) | payer BC ==
[~2017-08-10] MED LIST changes: -NIFE10CA20 PO
== END | disposition home or self-care (01) ==
LOC: C.PAPS 10:03
PROVIDERS: ATTEND Obstetrics & Gynecology
DX: Z39.2 Encounter for routine postpartum follow-up (principal); R87.610 Atypical squamous cells of undetermined significance on cytologic smear of cervix (ASC-US)

== ENCOUNTER → 2017-09-05 | Outpatient (CLI) | payer BC ==
[2017-09-05 17:38] LABS: HEMATOCRIT 38.3 % (37-47); HEMOGLOBIN 12.5 g/dL (12.0-16.0)
== END | disposition home or self-care (01) ==
LOC: C.LABBFT 11:22
PROVIDERS: ATTEND Internal Medicine
DX: D64.9 Anemia, unspecified (principal); E03.9 Hypothyroidism, unspecified